=== PATIENT | male | born 1945 ===

== ENCOUNTER 2017-08-17 10:16 | Emergency (ER) | payer MEDICARE, OTHER ==
[2017-08-17 10:19] VITALS: BMI 26.6
[2017-08-17 10:21] VITALS: BP 129/80; PULSE 63; RESP 20; TEMP 97.5; O2SAT 97
[2017-08-17] MEDS ORDERED: Oxycodone/Acetaminophen 5/325 mg Tab PO STA (11:04)
[2017-08-17] MEDS ORDERED: Oxycodone/Acetaminophen 5/325 mg Tab ONE (11:13)
--- NOTE | 2017-08-17 12:32 | ED PDOC ---
Upper Extremity Pain/Injury Time Seen by Provider: 08/17/17 10:45 Chief Complaint (Nursing): Upper Extremity Problem/Injury Chief Complaint (Provider): Upper extremity injury History Per: Patient History/Exam Limitations: no limitations Onset/Duration Of Symptoms: Days (x4 months) Current Symptoms Are (Timing): Still Present Quality: "Pain" Pain Scale Rating Of: 8 Exacerbating Factor(s): Movement Additional Complaint(s): Gonsalo Hayward is a 72 year old male, with a past medical history of hypercholesterolemia, who presents to the emergency department for right arm pain s/p fall onset 4 months ago. Patient states that he fell onto an outstretched hand and he has had pain to the right arm ever since. The pain is worst with movement. His PMD prescribed him Voltaren gel which he has been using with no relief. No imaging studies has been so far. Patient denies any fever or chills. No further medical complaints. PMD: Kaylee Victoria Past Medical History Reviewed: Historical Data, Nursing Documentation, Vital Signs Vital Signs: Last Vital Signs Temp 97.5 F L 08/17/17 10:35 Pulse 63 08/17/17 10:35 Resp 20 08/17/17 10:35 BP 129/80 08/17/17 10:35 Pulse Ox 97 08/17/17 10:35 - Medical History PMH: Hypercholesterolemia - Family History Family History: States: Unknown Family Hx - Social History Current smoker - smoking cessation education provided: No Alcohol: None Drugs: Denies - Home Medications Home Medications: Ambulatory Orders Medication Instructions Recorded Acetaminophen with Codeine 1 tab PO Q6H PRN #10 tab 08/17/17 [Tylenol with Codeine No. 3 300 mg-30 mg] - Allergies Allergies/Adverse Reactions: Allergies Allergy/AdvReac Type Severity Reaction Status Date / Time No Known Allergies Allergy Verified 08/17/17 10:35 Review of Systems ROS Statement: Except As Marked, All Systems Reviewed And Found Negative Constitutional: Negative for: Fever, Chills Musculoskeletal: Positive for: Arm Pain (right) Physical Exam - Reviewed Nursing Documentation Reviewed: Yes Vital Signs Reviewed: Yes - Physical Exam Appears: Positive for: Well, Non-toxic, No Acute Distress Head Exam: Positive for: ATRAUMATIC, NORMAL INSPECTION, NORMOCEPHALIC Skin: Positive for: Normal Color, Warm, Dry Eye Exam: Positive for: EOMI, Normal appearance, PERRL Neck: Positive for: Normal, Painless ROM, Supple Cardiovascular/Chest: Positive for: Regular Rate, Rhythm. Negative for: Murmur Respiratory: Positive for: Normal Breath Sounds. Negative for: Respiratory Distress Gastrointestinal/Abdominal: Positive for: Normal Exam, Bowel Sounds, Soft. Negative for: Tenderness, Guarding, Rebound Back: Positive for: Normal Inspection. Negative for: L CVA Tenderness, R CVA Tenderness Extremity: Positive for: Normal ROM (Full ROM to shoulder and elbow), Tenderness (minimal tenderness to the right lateral upper arm and right forearm ). Negative for: Pedal Edema, Deformity, Other (ecchymosis or point tenderness) Neurologic/Psych: Positive for: Alert, Oriented - ECG O2 Sat by Pulse Oximetry: 97 (RA) Pulse Ox Interpretation: Normal Medical Decision Making Medical Decision Making: Initial Impression: right arm pain s/p fall Initial Plan: --Percocet 1 tab PO --Forearm Right fall protocol [RAD] --Humerus Right fall protocol. [RAD] --Shoulder right [RAD] --reevaluation 1259 Forearm X-Ray FINDINGS: BONES: There is an oblique lucency in the medial cortex of the midshaft of the radius. Bone alignment and mineralization are normal. JOINT SPACES: Unremarkable. OTHER FINDINGS: None. IMPRESSION: Question of acute nondisplaced fracture versus nutrient foramen in the medial cortex of the midshaft of the radius. 1300 Humerus X-Ray FINDINGS: BONES: Bone alignment and mineralization are normal. No acute fracture or focal lesion. SOFT TISSUES: Normal. OTHER FINDINGS: None. IMPRESSION: No acute fracture or dislocation. 1301 Shoulder X-Ray FINDINGS: BONES: Bone alignment and mineralization are normal for patient's age. No acute displaced fracture. 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 SOFT TISSUES: Normal. OTHER FINDINGS: None. IMPRESSION: No acute displaced fracture or dislocation. Arm splint placed. Scribe Attestation: Documented by Miquel Dowell, acting as a scribe for Linda Vee MD Provider Scribe Attestation: All medical record entries made by the Scribe were at my direction and personally dictated by me. I have reviewed the chart and agree that the record accurately reflects my personal performance of the history, physical exam, medical decision making, and the department course for this patient. I have also personally directed, reviewed, and agree with the discharge instructions and disposition. Disposition - Clinical Impression Clinical Impression: Radial shaft fracture - Disposition Referrals: Brent Luna III, MD [Staff Provider] - Disposition: Routine/Home Disposition Time: 13:07 Condition: STABLE Prescriptions: Acetaminophen with Codeine [Tylenol with Codeine No. 3 300 mg-30 mg] 1 tab PO Q6H PRN #10 tab PRN Reason: Pain, Severe (8-10) Instructions: Arm Fracture in Adults (ED) Forms: [employer] (H[place]er) Print Language: IRISH
--- NOTE | 2017-08-17 13:00 | RAD ---
PROCEDURE: Radiographs of the Right Forearm HISTORY: Fall COMPARISON: None available. TECHNIQUE: Frontal and lateral views obtained. FINDINGS: BONES: There is an oblique lucency in the medial cortex of the midshaft of the radius. Bone alignment and mineralization are normal. JOINT SPACES: Unremarkable. OTHER FINDINGS: None. IMPRESSION: Question of acute nondisplaced fracture versus nutrient foramen in the medial cortex of the midshaft of the radius.
--- NOTE | 2017-08-17 13:01 | RAD ---
PROCEDURE: Radiographs of the right humerus. HISTORY: Fall COMPARISON: None. FINDINGS: BONES: Bone alignment and mineralization are normal. No acute fracture or focal lesion. SOFT TISSUES: Normal. OTHER FINDINGS: None. IMPRESSION: No acute fracture or dislocation.
--- NOTE | 2017-08-17 13:03 | RAD ---
PROCEDURE: Radiographs of the Right Shoulder HISTORY: Fall COMPARISON: No prior. FINDINGS: BONES: Bone alignment and mineralization are normal for patient's age. No acute displaced fracture. 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 SOFT TISSUES: Normal. OTHER FINDINGS: None. IMPRESSION: No acute displaced fracture or dislocation.
== END 2017-08-17 14:11 | disposition home or self-care (01) ==
LOC: H.ER 10:16
DX: S52.331A Displaced oblique fracture of shaft of right radius, initial encounter for closed fracture (principal); W19.XXXA Unspecified fall, initial encounter; Y92.89 Other specified places as the place of occurrence of the external cause; E78.00 Pure hypercholesterolemia, unspecified